=== PATIENT | male | born 1955 | race American Indian/Alaskan Native ===

== ENCOUNTER 2019-01-11 15:08 | Emergency (ER) | payer OTHER ==
--- NOTE | 2019-01-11 16:54 | Emergency Department Report ---
Chief Complaint: High BP Stated Complaint: CHEST PAIN Time Seen by Provider: 01/11/19 16:49 - HPI History of Present Illness: This is a 63 y.o. male that presents with elevated blood pressure. Patient states he work but he can't afford medical insurance. Report intermittent episodes of dizziness and headache. He currently have a headache that is 9/10 on pain scale. He is requesting blood pressure medication refills for lisinopril and HCTZ. - ROS Review of Systems: headache - Exam Vital Signs: Vital Signs 01/11/19 16:37 Temperature 98.0 F Pulse Rate 80 Respiratory 16 Rate Blood Pressure 159/99 [Right] O2 Sat by Pulse 98 Oximetry MSE screening note: Focused history and physical exam performed. Due to findings the following was ordered: Fast track for further evaluation. ED Disposition for MSE Condition: Stable
--- NOTE | 2019-01-11 20:57 | Emergency Department Report ---
ED General Adult HPI - General Chief complaint: High BP Stated complaint: CHEST PAIN Time Seen by Provider: 01/11/19 16:49 Source: patient Mode of arrival: Ambulatory Limitations: No Limitations - History of Present Illness Initial comments: 63-year-old -[place] male presents emergency department complaining running out of his hypertension medication due to not been able to be seen at his doctor's appointment today. States the he takes lisinopril and would like a refill of his lisinopril 20 mg and hydrochlorothiazide. He denies any current symptoms. States he actually is having a little dull, sinus pressure due to having a sinus allergies and nasal congestion but reports no chest pain, palpitations, blurry vision, tinnitus, visual changes. States she only needs his medication refill. -: Sudden Severity scale (0 -10): 9 Improves with: none Worsens with: none Associated Symptoms: denies: chest pain, cough, diaphoresis, loss of appetite, malaise, nausea/vomiting, shortness of breath, syncope, weakness - Related Data Previous Rx's Medication Instructions Recorded Last Taken Type Atenolol [Tenormin] 25 mg PO DAILY #30 tab 08/20/16 Unknown Rx Lisinopril [Zestril] 20 mg PO DAILY #30 tablet 01/11/19 Unknown Rx hydroCHLOROthiazide 12.5 mg PO DAILY #30 tablet 01/11/19 Unknown Rx [Hydrochlorothiazide] Allergies Allergy/AdvReac Type Severity Reaction Status Date / Time No Known Allergies Allergy Unverified 08/20/16 11:53 ED Review of Systems ROS: Stated complaint: CHEST PAIN Other details as noted in HPI Constitutional: denies: chills, fever Eyes: denies: eye pain, eye discharge, vision change ENT: denies: ear pain, throat pain Respiratory: denies: cough, shortness of breath, wheezing Cardiovascular: denies: chest pain, palpitations Endocrine: no symptoms reported Gastrointestinal: denies: abdominal pain, nausea, diarrhea Genitourinary: denies: urgency, dysuria Musculoskeletal: denies: back pain, joint swelling, arthralgia Skin: denies: rash, lesions Neurological: denies: headache, weakness, paresthesias Psychiatric: denies: anxiety, depression Hematological/Lymphatic: denies: easy bleeding, easy bruising ED Past Medical Hx - Past Medical History Hx Hypertension: Yes - Social History Smoking Status: Never Smoker Substance Use Type: None - Medications Home Medications: Home Medications Medication Instructions Recorded Confirmed Last Taken Type Atenolol [Tenormin] 25 mg PO DAILY #30 tab 08/20/16 Unknown Rx Lisinopril [Zestril] 20 mg PO DAILY #30 tablet 01/11/19 Unknown Rx hydroCHLOROthiazide 12.5 mg PO DAILY #30 tablet 01/11/19 Unknown Rx [Hydrochlorothiazide] ED Physical Exam - General Limitations: No Limitations General appearance: alert, in no apparent distress - Head Head exam: Present: atraumatic, normocephalic - Eye Eye exam: Present: normal appearance, PERRL Pupils: Present: normal accommodation - ENT ENT exam: Present: normal exam, normal orophraynx, mucous membranes moist, TM's normal bilaterally - Neck Neck exam: Present: normal inspection, full ROM. Absent: tenderness, meningismus, lymphadenopathy, thyromegaly - Respiratory Respiratory exam: Present: normal lung sounds bilaterally. Absent: respiratory distress - Cardiovascular Cardiovascular Exam: Present: regular rate, normal rhythm. Absent: systolic murmur, diastolic murmur, rubs, gallop - GI/Abdominal GI/Abdominal exam: Present: soft, normal bowel sounds - Rectal Rectal exam: Present: deferred - Extremities Exam Extremities exam: Present: normal inspection - Back Exam Back exam: Present: normal inspection - Neurological Exam Neurological exam: Present: alert, oriented X3 - Psychiatric Psychiatric exam: Present: normal affect, normal mood - Skin Skin exam: Present: warm, dry, intact, normal color. Absent: rash ED Course Vital Signs 01/11/19 01/11/19 16:37 16:49 Temperature 98.0 F 98.0 F Pulse Rate 80 80 Respiratory 16 16 Rate Blood Pressure 159/99 Blood Pressure 159/99 [Right] O2 Sat by Pulse 98 98 Oximetry Critical care attestation.: If time is entered above; I have spent that time in minutes in the direct care of this critically ill patient, excluding procedure time. ED Disposition Clinical Impression: Medication refill Disposition: DC-01 TO HOME OR SELFCARE Is pt being admited?: No Does the pt Need Aspirin: No Condition: Stable Instructions: Hypertension (ED), Low Sodium Diet (ED), DASH Eating Plan (ED) Prescriptions: hydroCHLOROthiazide [Hydrochlorothiazide] 12.5 mg PO DAILY #30 tablet Lisinopril [Zestril] 20 mg PO DAILY #30 tablet Referrals: JANEL DOAN MD [Primary Care Provider] - 3-5 Days
== END 2019-01-11 21:19 | disposition home or self-care (01) ==
LOC: ED 15:08
CPT/HCPCS: 99282

== ENCOUNTER 2020-10-21 12:12 | Emergency (ER) | payer MEDICARE, OTHER ==
[2020-10-21 12:30] VITALS: BP 198/99
[2020-10-21 14:01] LABS: Basophils % (Auto) 0.6 % (0.0-1.8); Eosinophils # (Auto) 0.2 K/mm3 (0.0-0.4); Eosinophils % (Auto) 2.1 % (0.0-4.3); Hematocrit 44.1 % (35.5-45.6); Hemoglobin 15.1 gm/dl (11.8-15.2); Lymphocytes % (Auto) 25.7 % (13.4-35.0); Mean Corpuscular HGB Conc 34 % (32-34); Mean Corpuscular Volume 90 fl (84-94); Monocytes # (Auto) 0.6 K/mm3 (0.0-0.8); Monocytes % (Auto) 7.7 % (0.0-7.3); Platelet Count 213 K/mm3 (140-440); Red Blood Count 4.93 M/mm3 (3.65-5.03); Red Cell Distribution Width 13.3 % (13.2-15.2)
[2020-10-21 14:26] LABS: Alanine Aminotransferase 13 units/L (7-56); Albumin 3.9 g/dL (3.9-5); BUN/Creatinine Ratio 13; Blood Urea Nitrogen 13 mg/dL (9-20); Calcium 9.1 mg/dL (8.4-10.2); Hemolysis Index 9
--- NOTE | 2020-10-21 14:54 | Emergency Department Report ---
ED General Adult HPI - General Chief complaint: High BP Stated complaint: HBP Time Seen by Provider: 10/21/20 14:44 Source: patient Mode of arrival: Ambulatory Limitations: No Limitations - History of Present Illness Initial comments: Patient is a 65-year-old male presents emergency room with complaints of elevated blood pressure for the last few days. He states that he takes lisinopril 20 mg and hydrochlorothiazide 12.5 mg. He states he has been taking those daily. He states that he feels nervousness about his BP being elevated. He denies any headache, vision changes, chest pain, shortness of breath, numbness, unilateral weakness, gait disturbance, speech disturbance. He states that he only has 1 day left of his blood pressure medication and he is not able to get in with his primary care doctor until 11/04/2020. He states that he believes this is making him more nervous and increasing his blood pressure more. He states that he is not compliant with his low-sodium diet. No other past medical history. No allergies medications. - Related Data Previous Rx's Medication Instructions Recorded Last Taken Type atenoloL [Tenormin] 25 mg PO DAILY #30 tab 08/20/16 Unknown Rx Lisinopril [Zestril] 20 mg PO DAILY #30 tablet 01/11/19 Unknown Rx hydroCHLOROthiazide 12.5 mg PO DAILY #30 tablet 01/11/19 Unknown Rx [Hydrochlorothiazide] amLODIPine 5 mg PO DAILY #30 tab 10/21/20 Unknown Rx hydroCHLOROthiazide [Hctz] 12.5 mg PO QDAY #30 capsule 10/21/20 Unknown Rx lisinopriL [Zestril TAB] 20 mg PO QDAY #30 tablet 10/21/20 Unknown Rx Allergies Allergy/AdvReac Type Severity Reaction Status Date / Time No Known Allergies Allergy Unverified 08/20/16 11:53 ED Review of Systems ROS: Stated complaint: HBP Other details as noted in HPI Comment: All other systems reviewed and negative ED Past Medical Hx - Past Medical History Previous Medical History?: Yes Hx Hypertension: Yes - Surgical History Past Surgical History?: No - Social History Smoking Status: Never Smoker Substance Use Type: None - Medications Home Medications: Home Medications Medication Instructions Recorded Confirmed Last Taken Type atenoloL [Tenormin] 25 mg PO DAILY #30 tab 08/20/16 Unknown Rx Lisinopril [Zestril] 20 mg PO DAILY #30 tablet 01/11/19 Unknown Rx hydroCHLOROthiazide 12.5 mg PO DAILY #30 tablet 01/11/19 Unknown Rx [Hydrochlorothiazide] amLODIPine 5 mg PO DAILY #30 tab 10/21/20 Unknown Rx hydroCHLOROthiazide [Hctz] 12.5 mg PO QDAY #30 capsule 10/21/20 Unknown Rx lisinopriL [Zestril TAB] 20 mg PO QDAY #30 tablet 10/21/20 Unknown Rx ED Physical Exam - General Limitations: No Limitations General appearance: alert, in no apparent distress - Head Head exam: Present: atraumatic, normocephalic - Eye Eye exam: Present: normal appearance, PERRL, EOMI. Absent: periorbital swelling, periorbital tenderness Pupils: Present: normal accommodation - ENT ENT exam: Present: mucous membranes moist - Respiratory Respiratory exam: Present: normal lung sounds bilaterally. Absent: respiratory distress, wheezes, rales, rhonchi, stridor, chest wall tenderness, accessory muscle use, decreased breath sounds, prolonged expiratory - Cardiovascular Cardiovascular Exam: Present: regular rate, normal rhythm, normal heart sounds. Absent: systolic murmur, diastolic murmur, rubs, gallop - Neurological Exam Neurological exam: Present: alert, oriented X3, CN II-XII intact, normal gait. Absent: motor sensory deficit - Psychiatric Psychiatric exam: Present: normal affect, normal mood - Skin Skin exam: Present: warm, dry, intact ED Course Vital Signs 10/21/20 12:27 Temperature 98.5 F Pulse Rate 98 H Respiratory 18 Rate Blood Pressure 198/99 O2 Sat by Pulse 97 Oximetry ED Medical Decision Making - Lab Data Result diagrams: 10/21/20 13:19 10/21/20 13:19 Lab Results 10/21/20 10/21/20 Range/Units 13:19 13:19 WBC 7.7 (4.5-11.0) K/mm3 RBC 4.93 (3.65-5.03) M/mm3 Hgb 15.1 (11.8-15.2) gm/dl Hct 44.1 (35.5-45.6) % MCV 90 (84-94) fl MCH 31 (28-32) pg MCHC 34 (32-34) % RDW 13.3 (13.2-15.2) % Plt Count 213 (140-440) K/mm3 Lymph % (Auto) 25.7 (13.4-35.0) % Sargent % (Auto) 7.7 H (0.0-7.3) % Eos % (Auto) 2.1 (0.0-4.3) % Baso % (Auto) 0.6 (0.0-1.8) % Lymph # (Auto) 2.0 (1.2-5.4) K/mm3 Sargent # (Auto) 0.6 (0.0-0.8) K/mm3 Eos # (Auto) 0.2 (0.0-0.4) K/mm3 Baso # (Auto) 0.0 (0.0-0.1) K/mm3 Seg Neutrophils % 63.9 (40.0-70.0) % Seg Neutrophils # 4.9 (1.8-7.7) K/mm3 Sodium 141 (137-145) mmol/L Potassium 4.2 (3.6-5.0) mmol/L Chloride 107.4 H (98-107) mmol/L Carbon Dioxide 26 (22-30) mmol/L Anion Gap 12 mmol/L BUN 13 (9-20) mg/dL Creatinine 1.0 (0.8-1.3) mg/dL Estimated GFR > 60 ml/min BUN/Creatinine Ratio 13 % Glucose 84 (75-100) mg/dL Calcium 9.1 (8.4-10.2) mg/dL Total Bilirubin 0.20 (0.1-1.2) mg/dL AST 16 (5-40) units/L ALT 13 (7-56) units/L Alkaline Phosphatase 99 (35-129) units/L Troponin T < 0.010 (0.00-0.029) ng/mL Total Protein 7.2 (6.3-8.2) g/dL Albumin 3.9 (3.9-5) g/dL Albumin/Globulin Ratio 1.2 % - Medical Decision Making Patient is a 65-year-old male presents emergency room with complaints of elevated blood pressure for the last few days. He states that he takes lisinopril 20 mg and hydrochlorothiazide 12.5 mg. He states he has been taking those daily. He states that he feels nervousness about his blood pressure being elevated. He denies any headache, vision changes, chest pain, shortness of breath, numbness, unilateral weakness, gait disturbance, speech disturbance. He states that he only has 1 day left of his blood pressure medication and he is not able to get in with his primary care doctor until 11/04/2020. He states that he believes this is making him more nervous and increasing his blood pressure more. He states that he is not compliant with his low-sodium diet. No other past medical history. No allergies medications. Vitals with elevated blood pressure, otherwise stable. On repeat his blood pressure is 182/84 in exam room. Labs are normal. Kidney function is normal. He has no neurological deficits on exam. He is not having any symptoms related to his blood pressure just that he feels nervous about his blood pressure being elevated. He states he does have an appointment with a primary care doctor in approximately 2 weeks. Patient given refill of his home medications and also started on low-dose amlodipine. Advised patient please take medication as prescribed. increase your water intake. eat a low sodium/salt diet. incorporate 30-60 minutes daily exercise. return to the emergency room for any new or worsening symptoms. Critical care attestation.: If time is entered above; I have spent that time in minutes in the direct care of this critically ill patient, excluding procedure time. ED Disposition Clinical Impression: Hypertensive urgency Disposition: DC-01 TO HOME OR SELFCARE Is pt being admited?: No Does the pt Need Aspirin: No Condition: Stable Instructions: Hypertension, Adult, [id number], Hypertension (ED) Additional Instructions: please take medication as prescribed. increase your water intake. eat a low sodium/salt diet. incorporate 30-60 minutes daily exercise. return to the emergency room for any new or worsening symptoms. Prescriptions: amLODIPine 5 mg PO DAILY #30 tab hydroCHLOROthiazide [Hctz] 12.5 mg PO QDAY #30 capsule lisinopriL [Zestril TAB] 20 mg PO QDAY #30 tablet Referrals: [facility] [Other] - 2-3 Days Time of Disposition: 14:51 Print Language: RWANDAN
== END 2020-10-21 15:00 | disposition home or self-care (01) ==
LOC: ED 12:12
DX: I16.0 Hypertensive urgency (principal); Z79.899 Other long term (current) drug therapy
CPT/HCPCS: 36415; 80053; 84484; 85025; 99283